=== PATIENT | male | born 1950 | race Caucasian/White ===

== ENCOUNTER 2016-12-07 10:57 | Emergency (ER) | payer MEDICARE, BC ==
[2016-12-07 11:14] VITALS: RESP 18; TEMP 97.4
[2016-12-07 13:49] VITALS: BP 128/69; PULSE 68; O2SAT 94
== END 2016-12-07 12:39 | disposition home or self-care (01) | DRG 556 ==
LOC: ED 10:57
DX: M25.552 Pain in left hip (principal)
CPT/HCPCS: 73502; 99282

== ENCOUNTER 2017-10-27 07:21 | Day surgery (SDC) | payer MEDICARE, BC ==
[2017-10-27] MEDS ORDERED: LIDOCAINE HCL 1% MPF SOL ONE (07:41)
[2017-10-27] MEDS ORDERED: PROPOFOL 500 MG/50 ML EMU IV ONE (07:41)
[2017-10-27 09:23] VITALS: RESP 20
[2017-10-27 09:48] VITALS: TEMP 97.4; O2SAT 96
[2017-10-27 09:53] VITALS: BP 185/106; PULSE 67
== END 2017-10-27 10:05 | disposition home or self-care (01) | DRG 951 ==
LOC: SURG 07:21
PROVIDERS: ATTEND Surgery
DX: Z12.11 Encounter for screening for malignant neoplasm of colon (principal); Z80.0 Family history of malignant neoplasm of digestive organs
CPT/HCPCS: J2001; J2704

== ENCOUNTER 2018-05-16 08:41 | Emergency (ER) | payer MEDICARE, BC ==
[2018-05-16] MEDS ORDERED: NITROGLYCERIN 0.4 MG TAB SL PRN (09:07)
[2018-05-16] MEDS ORDERED: ASPIRIN 81 MG CHEWABLE CTB PO STA (09:07)
[2018-05-16 09:37] LABS: BASOPHILS % (AUTO) 0 % (0-3); EOSINOPHILS % (AUTO) 0 % (0-9); HEMATOCRIT 46 % (39-53); HEMOGLOBIN 14.7 gm/dl (13.5-17.7); LYMPHOCYTES % (AUTO) 3.6 % (10-50); MEAN CORPUSCULAR HEMOGLOBIN 29.2 pg (27.0-32.0); MEAN CORPUSCULAR HGB CONC 32.2 gm/dl (32.0-36.0); MEAN CORPUSCULAR VOLUME 90 fL (80-100); MONOCYTES % (AUTO) 5.9 % (0-12); NEUTROPHILS % (AUTO) 90.1 % (37-80)
[2018-05-16] MEDS: SODIUM CHLORIDE 0.9% FLUSH 10 ML SOL IV PRN ×2 (09:40→09:52)
[2018-05-16] MEDS ORDERED: HYDRALAZINE HYDROCHLORIDE 20 MG/ML SOL IV ONE (09:41)
[2018-05-16] MEDS ORDERED: ONDANSETRON HCL 4 MG/2 ML SOL IV ONE (09:42)
[2018-05-16] MEDS ORDERED: HYDRALAZINE HYDROCHLORIDE 20 MG/ML SOL ONE (09:44)
[2018-05-16] MEDS ORDERED: ONDANSETRON HCL 4 MG/2 ML SOL ONE (09:44)
[2018-05-16 09:55] LABS: BLOOD UREA NITROGEN 20 mg/dl (7-18); CALCIUM 9.8 mg/dl (8.5-10.1); CARBON DIOXIDE 30.6 mEq/L (21-32); CHLORIDE 101 mMol/L (98-107); CREATINE KINASE 57 U/L (39-308); CREATININE 1.03 mg/dl (0.80-1.30); GLUCOSE 143 mg/dl (74-106); POTASSIUM 4.1 mMol/L (3.5-5.1); SODIUM 138 mMol/L (136-145); TROP I < 0.017 ng/ml (0.000-0.056)
[2018-05-16 10:30] VITALS: RESP 19; TEMP 98.9
[2018-05-16] MEDS ORDERED: ALUMINUM/MAGNESIUM 30 ML SUS PO ONE (10:41)
[2018-05-16] MEDS ORDERED: LIDOCAINE HCL 2% (VISCOUS) 20 ML SOL PO ONE (10:42)
[2018-05-16] MEDS ORDERED: LIDOCAINE HCL 2% (VISCOUS) 20 ML SOL ONE (10:44)
[2018-05-16] MEDS ORDERED: ALUMINUM/MAGNESIUM 30 ML SUS ONE (10:44)
[2018-05-16 10:45] LABS: ALBUMIN 3.2 gm/dl (3.4-5.0); BILIRUBIN,DIRECT 1.1 mg/dl (0.0-0.2); BILIRUBIN,TOTAL 1.7 mg/dl (0.2-1.0); TOTAL PROTEIN 6.8 gm/dl (6.4-8.2)
[2018-05-16 16:39] VITALS: BP 118/80; PULSE 65; O2SAT 95
== END 2018-05-16 15:15 | disposition home or self-care (01) | DRG 446 ==
LOC: ED 08:41
DX: K80.20 Calculus of gallbladder without cholecystitis without obstruction (principal)
CPT/HCPCS: 36415; 71046; 74019; 80048; 80076; 82150; 82550; 84484; 85025; 93005; 96374; 96375; 99285; 99291; J0360; J2405; A9270-GY